=== PATIENT | male | born 1980 | race Caucasian/White ===

== ENCOUNTER → 2022-02-14 12:11 | Outpatient (BNVA) | payer OTHER, SELFPAY | PROVIDERS: PCP Internal Medicine; Visit Provider Internal Medicine | DX: T23.222A Burn of second degree of single left finger (nail) except thumb, initial encounter (principal); X08.8XXA Exposure to other specified smoke, fire and flames, initial encounter | CPT/HCPCS: 99202 ==

== ENCOUNTER → 2022-02-18 15:20 | Outpatient (BNVA) | payer OTHER, SELFPAY | PROVIDERS: PCP Internal Medicine; Visit Provider Internal Medicine | DX: T23.222A Burn of second degree of single left finger (nail) except thumb, initial encounter (principal); X08.8XXA Exposure to other specified smoke, fire and flames, initial encounter | CPT/HCPCS: 99213 ==

== ENCOUNTER → 2023-01-20 11:24 | Outpatient (BNVA) | payer OTHER, SELFPAY | PROVIDERS: PCP Internal Medicine; Visit Provider Internal Medicine | DX: S46.211A Strain of muscle, fascia and tendon of other parts of biceps, right arm, initial encounter (principal); X50.1XXA Overexertion from prolonged static or awkward postures, initial encounter | CPT/HCPCS: 99202 ==

== ENCOUNTER 2024-08-09 13:25 | Emergency (ER) | payer OTHER, BC, SELFPAY ==
--- NOTE | ~2024-08-09 | XR_ITS ---
EXAMINATION: XR FINGER, LEFT CLINICAL INFORMATION: fifth finger pain COMPARISON: None available. TECHNIQUE: Three views of the left fifth digit. FINDINGS: The bones and soft tissues are normal. No fracture. Alignment is anatomic. Joint spaces are maintained. XR/XR finger LT min 2V IMPRESSION: Normal finger radiographs. Electronically signed by: Ned Hyde MD 08/09/2024 01:56 PM [facility]
[2024-08-09 13:26] VITALS: BP 164/98; PULSE 73; RESP 20; TEMP 37; O2SAT 98; BMI 25.0
--- NOTE | 2024-08-09 13:28 | ED_ITS ---
HPI - Extremity Injury (Upper) General Chief Complaint: Extremity Injury, Upper Stated Complaint: Finger injury Time Seen by Provider: 08/09/24 13:49 Source: patient Mode of arrival: ambulatory Limitations: no limitations History of Present Illness ED Provider: Yuridia Roque PA-C HPI narrative: Patient is a 43 year old assigned male at with no reported medical history presenting to the emergency department today with a left pinky injury. 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 Patient states that he is unable to extend the distal most part of his left 5th finger. Patient denies any dizziness, lightheadedness, abdominal pain, nausea, vomiting, fever, chills, blurry vision, double vision, loss of vision, chest pain, difficulty breathing, shortness of breath, back pain, night sweats, pain with urination, increased urinary frequency, increased urinary urgency, blood in his urine or stool, syncope or a near syncopal episode, bowel incontinence, bladder incontinence, or any other complaints at this time. MD complaint: injury to: left and finger (5th) Relieving factors: none Exacerbating factors: none Context: direct blow Associated symptoms: denies other symptoms Related Data Allergies Allergy/AdvReac Type Severity Reaction Status Date / Time No Known Allergies Allergy Verified 08/09/24 13:29 Review of Systems Constitutional: Constitutional: Reports no additional constitutional complaints, Denies chills, Denies fever(s) and Denies night sweats Eyes: Eyes: Reports no additional eye complaints, Denies blurry vision, Denies change in vision, Denies diplopia, Denies eye discharge, Denies loss of vision and Denies eye pain ENT: Denies dizziness Cardiovascular: Cardiovascular: Reports no additional cardiovascular complaints, Denies chest pain, Denies lightheadedness, Denies Loss of Consciousness and Denies dyspnea Respiratory: Respiratory: Reports no additional respiratory complaints and Denies dyspnea Gastrointestinal: Gastrointestinal: Reports no additional gastrointestinal complaints, Denies abdominal pain, Denies melena, Denies hematochezia, Denies change in bowel habits and Denies change in stool character Genitourinary: Genitourinary: Reports no additional male genitourinary complaints, Denies hematuria, Denies oliguria, Denies difficulty urinating, Denies dysuria, Denies urinary frequency, Denies urinary hesitancy, Denies urinary incontinence and Denies urinary urgency Musculoskeletal: Musculoskeletal: Reports no additional musculoskeletal complaints, Denies numbness and Denies tingling Comments: left 5th digit injury - cannot extend Neurologic: Denies dizziness, Denies loss of vision, Denies numbness and Denies tingling Psychiatric: Psychiatric: Reports no additional psychiatric complaints Endocrine: Endocrine: Reports no additional endocrine complaints Hematologic/Lymphatic: Hematologic/Lymphatic: Reports no additional hematologic/lymphatic complaints Allergic/Immunologic: Allergic/Immunologic: Reports no additional allergic/ immunologic complaints PMFSH Past Medical History Attestation statement: The following information was validated with the patient. Source: old records reviewed and nursing notes reviewed Social History Social History Advance Directives: No Advance Directives Information Provided: No Physical Exam Vital Signs: Vital Signs: Last Vital Signs Temp 98.2 F 08/09/24 15:22 Pulse 61 08/09/24 15:22 Resp 16 08/09/24 15:22 BP 176/94 H 08/09/24 15:22 Pulse Ox 97 08/09/24 15:22 O2 Del Method Room Air 08/09/24 15:22 BMI result Body Mass Index 25.0 Const: General: cooperative, no acute distress, alert and awake Nutritional Appearance: well nourished Orientation/consciousness: patient oriented x3 Limitations: no limitations HEENT: Head: Yes normal to inspection and Yes atraumatic Ears: hearing grossly normal bilaterally and external ears normal General nose exam: Normal external nose present, no nasal discharge noted and no epistaxis Face and sinus: Yes normal facial exam, No abrasion and No laceration Mouth: Normal oral and palatal mucosa present, no drooling and no muffled voice Eyes: General: appearance normal, both eyes and all related structures Periorbital: periorbital findings normal Eyelids: Yes eyelids normal Conjunctivae: conjunctivae normal Pupils: Equal, round and reactive pupils present EOM: EOMs intact bilaterally Neck: Neck: Yes normal visual inspection, Yes full ROM and Yes no lymphadenopathy Chest: Chest palpation & inspection: normal inspection of the chest Resp: Effort & Inspection: normal respiratory effort and able to speak in complete sentences GI: Inspection: Yes normal to inspection Neuro: General: patient oriented x3 and moves all extremities Cranial nerves: Yes Equal, round and reactive pupils present Cognition (Neuro): normal cognition Extrem: Other: patient's left 5th finger is stuck in flexion at the DIP joint patient unable to actively extend the left 5th finger at the DIP joint I am unable to passive extend the left 5th finger at the DIP joint - it snaps back to flexed when extended General: Yes capillary refill normal Psych: Appearance: grossly normal Mental Status: mental status grossly normal Affect: normal affect Attitude: cooperative Thought process: Normal thought process present Thought content: Normal thought content present Insight: Good insight present (Psych) Course Course Course Narrative: This is an RME: Additional HPI, ROS, PE not included below will be deferred to primary provider. RME assessment and note performed by: Yuliya Booth PA-C This is a [id number], with no known medical problems, who presents to the ER with complaints of left fifth digit pain/dislocation. 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 Left finger appears to be dislocated. Plan: xray Medical Decision Making Medical Decision Making MDM Narrative: Patient is a 43 year old assigned male at with no reported medical history presenting to the emergency department today with a left 5th finger injury. Patient's physical exam was as noted in the physical exam portion of this note. Patient's left 5th finger x-ray showed no acute process. I spoke with the orthopedic team who recommended splinting the left 5th finger in extension and having him follow up on an outpatient basis. I explained my physical exam findings as well as all test results to the patient. I answered all questions asked by the patient. Patient's left 5th finger was placed in a splint without incident. Patient's PMS was intact prior to and after splint placement per the physical exam note. I stressed the importance of the patient taking his medication as directed (either prescribed or as the over the counter packaging recommends). I stressed the importance of the patient following up with his primary care provider, the orthopedic team, and work connection. I stressed the importance of the patient returning to the emergency department immediately if his symptoms were to worsen or if he were to develop any dizziness, shortness of breath, difficulty breathing, chest pain, blurry vision, loss of vision, nausea, vomiting, abdominal pain, fever, chills, back pain, or any other complaints. Patient verbalized agreement and understanding with this treatment plan and discharge. Differential Diagnosis Differential Diagnoses: The differential diagnosis associated with the presentation includes Left 5th finger mallet finger Admission/Observation Consideration of admission/observation: Escalation of care including admission/observation considered Patient would have been admitted to the hospital had his work up had any findings where hospital admission was appropriate and his clinical presentation warranted hospital admission. Consult Healthcare Provider Management of the patient was discussed with: Reliability Specialist (I spoke to the orthopedic team as noted in the MDM Rationale portion of this note) Independent Interpretation I performed an independent interpretation of an: Plain X-Ray Interpretation: My interpretation is in agreement with the radiologist's impression of this imaging study. EXAMINATION: XR FINGER, LEFT CLINICAL INFORMATION: fifth finger pain COMPARISON: None available. TECHNIQUE: Three views of the left fifth digit. FINDINGS: The bones and soft tissues are normal. No fracture. Alignment is anatomic. Joint spaces are maintained. XR/XR finger LT min 2V IMPRESSION: Normal finger radiographs. Electronically signed by: Ned Hyde MD 08/09/2024 01:56 PM [facility] Dictated By: Ned Hyde MD Signed By: Electronically signed by Ned Hyde MD 08/09/24 1356 Radiology Impression Discussion of test interpretation with radiology: I have reviewed the radiologist's reading. Procedures Orthopedic Splinting/Casting Injury #1: Side: left Upper Extremity Injury Location: finger (5th) Upper Extremity Immobilizer: finger (other) Discharge Plan Discharge Clinical Impression: Mallet deformity of left little finger Patient Disposition: Home, Self-Care Instructions: Jammed Finger (ED), Tendon Repair (DC) Additional Instructions: Please leave your splint in place. If your finger starts to have a change in color, feeling / sensation, or you feel the splint is too tight - immediately loosen the wrap. If you find yourself loosening it to the point where you're seeing the under portion of the splint, STOP and return to the ER immediately. Follow up with your primary care provider, work connection, and the orthopedic team. Return to the emergency department immediately if your symptoms worsen or if you develop any dizziness, shortness of breath, difficulty breathing, chest pain, blurry vision, loss of vision, nausea, vomiting, abdominal pain, fever, chills, back pain, or any other complaints. Referrals: [facility] [Provider Group] (Call to establish and follow up with an orthopedic provider.) [facility] [Provider Group] (Given this was a work place injury, call to establish and follow up with work connection.) Ian Still NP [Primary Care Provider] - Stand Alone Forms: Work/School Release Interventions: ED Discharge Assessment Last Done: 08/09/24 15:22 Discharge Date/Time: 08/09/24 15:23 Print Language: Stateless
[2024-08-09 15:10] VITALS: BP 176/94; PULSE 61; RESP 16; TEMP 36.8; O2SAT 97
[2024-08-09 15:22] VITALS: BP 176/94; PULSE 61; RESP 16; TEMP 36.8; O2SAT 97
== END 2024-08-09 15:23 | disposition home or self-care (01) ==
PROVIDERS: Emergency Provider Student in an Organized Health Care Education/Training Program; PCP Nurse Practitioner Family
DX: S67.22XA Crushing injury of left hand, initial encounter (principal); M20.012 Mallet finger of left finger(s); M79.645 Pain in left finger(s); W23.0XXA Caught, crushed, jammed, or pinched between moving objects, initial encounter; Y93.89 Activity, other specified; Y92.79 Other farm location as the place of occurrence of the external cause; Y99.0 Civilian activity done for income or pay
CPT/HCPCS: 29130; 73140; 99282; 99283; 99284

== ENCOUNTER → 2024-08-09 13:32 | Outpatient (BNV) | payer OTHER, BC, SELFPAY | PROVIDERS: Emergency Provider Student in an Organized Health Care Education/Training Program; PCP Nurse Practitioner Family; Visit Provider Radiology Diagnostic Radiology | DX: M79.645 Pain in left finger(s) (principal) | CPT/HCPCS: 73140 ==

== ENCOUNTER → 2024-08-11 08:39 | Outpatient (BNVA) | payer OTHER, SELFPAY | PROVIDERS: PCP Nurse Practitioner Family; Visit Provider Physician Assistant Medical | DX: Z09 Encounter for follow-up examination after completed treatment for conditions other than malignant neoplasm (principal); M20.012 Mallet finger of left finger(s) | CPT/HCPCS: 99203 ==

== ENCOUNTER 2024-08-12 07:38 | Outpatient (REF) | payer OTHER, SELFPAY ==
--- NOTE | ~2024-08-12 | XR_ITS ---
CLINICAL HISTORY: M79.642 - Pain in left hand Exam: AP, lateral, and oblique views of the left hand. Comparison: None. Findings: There is ulnar deviation of the 5th metacarpophalangeal joint. No dislocation is identified. Mild flexion of the DIP joint of the small finger. No bony avulsion fracture is seen. Bony alignment is otherwise anatomic. No fracture, periosteal reaction, or erosive disease. Impression: 1. 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 2. Nonspecific mild flexion of the D IP joint of the small finger. Correlation with the integrity of the extensor tendon is suggested. This document has been electronically signed by: Ian Franco MD on 08/15/2024 21:35:15
== END 2024-08-12 07:39 | disposition home or self-care (01) ==
LOC: HO.HOSX 07:38
DX: M79.642 Pain in left hand (principal); M20.012 Mallet finger of left finger(s)
CPT/HCPCS: 73130; 99202

== ENCOUNTER 2024-08-12 08:00 | Outpatient (AMB) | payer OTHER, SELFPAY ==
--- NOTE | 2024-08-12 08:06 | A.OFFVIS_ITS ---
Intake Visit Reasons: FRAMING AND HANGING-Mallet deformity of LT LF -DOI 08/11/24 Intake Note: Rangel is a 43 year old right hand dominant male who presents today as a new patient for a evaluation of his left pinky finger, DOI 08/09/24. 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 Patient states that he is unable to extend the distal most part of his left 5th finger. Today he mentions that he is feeling soreness, not having much pain. Allergies No Known Allergies Allergy (Verified 08/12/24 08:11) HPI HPI FRAMING AND HANGING-Mallet deformity of LT LF -DOI 08/11/24: Details: Patient is a 43-year-old male who presents for evaluation of mallet deformity of the distal phalanx of the left small finger, date of injury 08/11/2024. 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 Today, the patient reports that he is not in any pain at all, but he is still unable to actively straight in the DIP joint of the left small finger. Denies any numbness or tingling in the left upper extremity. No other acute complaints or concerns at this time. 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 Neuro: Normal sensation of the tips of all digits of the left hand at this time Vascular: Cap refill brisk Pain: No tenderness to palpation about the left small finger No pain with range of motion ROM: Patient was unable to actively extend at the DIP joint of the left small finger, and is unable to hold passive extension Patient is able to flex and extend all other digits of the left hand fully and without difficulty Skin: No lacerations or abrasions. General: No ecchymosis, erythema, or evidence of infection. Psych: Appears grossly normal Affect normal Attitude cooperative Results Reviewed Results Reviewed: X-rays obtained in the office today and independently reviewed by me, Daniel Abraham PA-C, demonstrate no fracture or acute bony abnormality of the left hand. Assessment & Plan Assessment & Plan (1) Mallet deformity of little finger: Code(s): M20.019 - Mallet finger of unspecified finger(s) Category: Medical Plan 1. Mallet finger of the left small finger Date of injury 08/11/2024 Patient is educated about this condition Patient is educated about the typical recovery course At this time, patient was provided with 2 splints to be worn over the DIP joint of the left small finger, in his educated that he should be wearing the splints at all times, including sleeping or bathing Patient is educated that the only time he should remove the splint is when 1 is wet and he needs to change it Patient is advised that he should hold the finger in extension while changing the splint Patient states understanding of this Patient will follow-up in 2-3 weeks for reassessment, sooner with any acute concerns Orders: Orders XR hand LT min 3V Today M79.642 - Pain in left hand Coding Level of Care Code New Pt Level 3 (09163) Diagnoses Mallet deformity of little finger M20.019
== END 2024-08-12 08:27 | disposition home or self-care (01) ==
PROVIDERS: PCP Nurse Practitioner Family
DX: M20.019 Mallet finger of unspecified finger(s) (principal)
CPT/HCPCS: 99203

== ENCOUNTER → 2024-08-12 08:04 | Outpatient (BNV) | payer OTHER, SELFPAY | PROVIDERS: Visit Provider Radiology Diagnostic Radiology | DX: S63.217A Subluxation of metacarpophalangeal joint of left little finger, initial encounter (principal) | CPT/HCPCS: 73130 ==

== ENCOUNTER 2024-08-26 08:18 | Outpatient (AMB) | payer OTHER, SELFPAY ==
[2024-08-26 08:30] VITALS: BMI 25.0
--- NOTE | 2024-08-26 08:30 | A.OFFVIS_ITS ---
Vital Signs 08/26/24 08:30 08/26/24 08:31 Height 6 ft 3 in 6 ft 3 in Weight 200 lb 200 lb BMI 25.0 25.0 Intake Visit Reasons: OV F/u -Mallet deformity of LT LF -DOI 08/11/24 Intake Note: Rangel is a 43 year old right hand dominant male who presents today for a follow up visit for mallet finger of the left small finger, DOI: 08/09/2024. At his last visit he was provided two splints to be worn over the DIP of the left small finger at all times including sleep and bathing. He reports that he has been compliant with splinting and believes that this is improving. Allergies No Known Allergies Allergy (Verified 08/12/24 08:11) HPI HPI OV F/u -Mallet deformity of LT LF -DOI 08/11/24: Details: Rangel is a 43 year old right hand dominant male who presents today for a follow up visit for mallet finger of the left small finger, DOI: 08/09/2024. At his last visit he was provided two splints to be worn over the DIP of the left small finger at all times including sleep and bathing. He reports that he has been compliant with splinting and believes that this is improving. 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 Neuro: Normal sensation of the tips of all digits of the left hand at this time Vascular: Cap refill brisk Pain: No tenderness to palpation about the left small finger No pain with range of motion ROM: DIP joint of the left small finger in splint held in extension Patient is able to flex and extend all other digits of the left hand fully and without difficulty Skin: No lacerations or abrasions. General: No ecchymosis, erythema, or evidence of infection. Psych: Appears grossly normal Affect normal Attitude cooperative Assessment & Plan Assessment & Plan (1) Mallet deformity of little finger: Code(s): M20.019 - Mallet finger of unspecified finger(s) Category: Medical Plan 1. Mallet finger of the left small finger Date of injury 08/11/2024 Patient is educated about this condition Patient is educated about the typical recovery course At this time, patient was provided with 2 splints to be worn over the DIP joint of the left small finger, in his educated that he should be wearing the splints at all times, including sleeping or bathing Patient is educated that the only time he should remove the splint is when 1 is wet and he needs to change it Patient is advised that he should hold the finger in extension while changing the splint Patient states understanding of this Patient will follow-up in 4 weeks for reassessment, sooner with any acute concerns Coding Level of Care Code Est Pt Level 3 (91261) Diagnoses Mallet deformity of little finger M20.019
[2024-08-26 08:31] VITALS: BMI 25.0
== END 2024-08-26 08:47 | disposition home or self-care (01) ==
PROVIDERS: PCP Nurse Practitioner Family
DX: M20.019 Mallet finger of unspecified finger(s) (principal)
CPT/HCPCS: 99213

== ENCOUNTER → 2024-08-26 08:18 | Outpatient (BNVA) | payer OTHER, SELFPAY | PROVIDERS: PCP Nurse Practitioner Family | DX: M20.012 Mallet finger of left finger(s) (principal) | CPT/HCPCS: 99212 ==

== ENCOUNTER 2024-09-19 08:11 | Outpatient (AMB) | payer OTHER, SELFPAY ==
[2024-09-19 08:14] VITALS: BMI 25.0
--- NOTE | 2024-09-19 08:14 | A.OFFVIS_ITS ---
Vital Signs 09/19/24 08:14 Height 6 ft 3 in Weight 200 lb BMI 25.0 Intake Visit Reasons: OV F/u -Mallet deformity of LT LF -DOI 08/11/24 Intake Note: Rangel is a 43 year old right hand dominant male who presents today for a follow up visit for mallet finger of the left small finger, DOI: 08/09/2024. Patient continues to wear splint at all times. Denies pain, numbness, tingling, or finger locking. Allergies No Known Allergies Allergy (Verified 09/19/24 08:15) HPI HPI OV F/u -Mallet deformity of LT LF -DOI 08/11/24: Details: Patient is a 43-year-old female who presents for follow-up evaluation of mallet deformity of the left small finger, date of injury 08/11/2024. Patient reports that he has continued to be wholly faithful with his bracing. Patient inquires if he will be able to return to work full duty today. No other acute complaints or concerns at this time. 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 Neuro: Normal sensation of the tips of all digits of the left hand at this time Vascular: Cap refill brisk Pain: No tenderness to palpation about the left small finger No pain with range of motion ROM: DIP joint of the left small finger in splint held in extension Patient is able to flex and extend all other digits of the left hand fully and without difficulty Skin: No lacerations or abrasions. General: No ecchymosis, erythema, or evidence of infection. Psych: Appears grossly normal Affect normal Attitude cooperative Assessment & Plan Assessment & Plan (1) Mallet deformity of little finger: Code(s): M20.019 - Mallet finger of unspecified finger(s) Category: Medical Plan 1. Mallet finger of the left small finger Date of injury 08/11/2024 Patient is educated about this condition Patient is educated about the typical recovery course At this time, patient was advised that he should continue with splinting for another week, as he is not yet a full 6 weeks out from injury Patient is educated that the only time he should remove the splint is when 1 is wet and he needs to change it Patient is advised that he should hold the finger in extension while changing the splint Patient states understanding of this Patient will follow-up in 1 week with me with Dr. Bajwa in the office for reassessment, sooner with any acute concerns Coding Level of Care Code Est Pt Level 3 (03030) Diagnoses Mallet deformity of little finger M20.019
== END 2024-09-19 08:44 | disposition home or self-care (01) ==
PROVIDERS: PCP Nurse Practitioner Family
DX: M20.012 Mallet finger of left finger(s) (principal)
CPT/HCPCS: 99213

== ENCOUNTER → 2024-09-19 08:11 | Outpatient (BNVA) | payer OTHER, SELFPAY | PROVIDERS: PCP Nurse Practitioner Family | DX: M20.012 Mallet finger of left finger(s) (principal) | CPT/HCPCS: 99212 ==

== ENCOUNTER 2024-09-28 08:20 | Outpatient (AMB) | payer OTHER, SELFPAY ==
--- NOTE | 2024-09-28 08:22 | MHC.OFFVIS ---
Vital Signs 09/28/24 08:27 Height 6 ft 3 in Weight 200 lb BMI 25.0 Intake Visit Reasons: OV-Mallet deformity of LT LF DOI 08/11/24- Intake Note: Rangel is a 43 year old right hand dominant male who presents today for follow up of mallet finger of the left small finger, DOI: 08/09/2024. At the last visit patient was educated he should only remove splint when wet and needing replacement. Patient was also advised he should hold the finger in extension while changing the splint. Today patient reports he is doing well, having no pain at the moment. Allergies No Known Allergies Allergy (Verified 09/28/24 08:22) HPI HPI OV-Mallet deformity of LT LF DOI 08/11/24-: Details: Patient is a 43-year-old female who presents for follow-up evaluation of mallet deformity of the left small finger, date of injury 08/11/2024. Patient reports that he has continued to be wholly faithful with his bracing. Patient inquires if he will be able to return to work full duty today. No other acute complaints or concerns at this time. 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 Neuro: Normal sensation of the tips of all digits of the left hand at this time Vascular: Cap refill brisk Pain: No tenderness to palpation about the left small finger No pain with range of motion ROM: DIP joint of the left small finger in splint held in extension Patient was able to actively hold the DIP joint of the left small finger in extension once splint is removed Patient is able to flex and extend all other digits of the left hand fully and without difficulty Skin: No lacerations or abrasions. General: No ecchymosis, erythema, or evidence of infection. Psych: Appears grossly normal Affect normal Attitude cooperative Assessment & Plan Assessment & Plan (1) Mallet deformity of little finger: Code(s): M20.019 - Mallet finger of unspecified finger(s) Category: Medical Plan 1. 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
[2024-09-28 08:27] VITALS: BMI 25.0
== END 2024-09-28 08:45 | disposition home or self-care (01) ==
PROVIDERS: PCP Nurse Practitioner Family
DX: M20.019 Mallet finger of unspecified finger(s) (principal); M20.012 Mallet finger of left finger(s)
CPT/HCPCS: 99213

== ENCOUNTER → 2024-09-28 08:20 | Outpatient (BNVA) | payer OTHER, SELFPAY | PROVIDERS: PCP Nurse Practitioner Family | DX: M20.012 Mallet finger of left finger(s) (principal) | CPT/HCPCS: 99212 ==

== ENCOUNTER 2024-11-09 08:14 | Outpatient (AMB) | payer OTHER, SELFPAY ==
[2024-11-09 08:17] VITALS: BMI 25.0
--- NOTE | 2024-11-09 08:17 | MHC.OFFVIS ---
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 At his last visit he was transitioned from splinting at all times to only splinting for about 8 hours a day, he was allowed to return to work [employer]. Patient reports that he has been compliant with 8 hour a day splinting, he is wearing the splint at night and removing during the day unless he is at work. He notices that the finger does start to become a bit deformed while out of this splint, and he also has bruising on the dorsal aspect of the DIP. Allergies No Known Allergies Allergy (Verified 09/28/24 08:22) HPI HPI OV-Mallet deformity of LT LF DOI 08/11/24-: Details: Rangel is a 43 year old right hand dominant male who presents today for follow up of mallet finger of the left small finger, DOI: 08/09/2024. At his last visit he was transitioned from splinting at all times to only splinting for about 8 hours a day, he was allowed to return to work [employer]. Patient reports that he has been compliant with 8 hour a day splinting, he is wearing the splint at night and removing during the day unless he is at work. He notices that the finger does start to become a bit deformed while out of this splint, and he also has bruising on the dorsal aspect of the DIP. 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 Neuro: Normal sensation of the tips of all digits of the left hand at this time Vascular: Cap refill brisk Pain: No tenderness to palpation about the left small finger No pain with range of motion ROM: DIP joint of the left small finger in splint held in extension Patient was able to actively hold the DIP joint of the left small finger in extension Patient is able to flex and extend all other digits of the left hand fully and without difficulty Skin: No lacerations or abrasions. General: There is some ecchymosis noted on the dorsal aspect of the DIP joint of the left small finger along with lily suggestive of splint being too tight No erythema, or evidence of infection. Psych: Appears grossly normal Affect normal Attitude cooperative Assessment & Plan Assessment & Plan (1) Mallet deformity of little finger: Code(s): M20.019 - Mallet finger of unspecified finger(s) Category: Medical Plan 1. Mallet finger of left small finger Date of injury 08/11/2024 Patient appears to be recovering well from his injury Patient is educated about the typical recovery course At this time, patient was informed that he can discontinue use of the splint, but if he would feel more comfortable using it at work for the next week or 2, he can feel free to do so Patient was also educated he can gradually return to normal lifting, increasing to 5-10 lb over the next 2 weeks, 15 lb over the 2 following weeks, and then normal lifting Patient expresses understanding of this and is amenable to this plan Patient will follow-up in 4-6 weeks for [id number] check, sooner with any acute concerns Coding Level of Care Code Est Pt Level 3 (89551) Diagnoses Mallet deformity of little finger M20.019
== END 2024-11-09 08:32 | disposition home or self-care (01) ==
LOC: HO.HOS 08:14
PROVIDERS: PCP Nurse Practitioner Family
DX: M20.019 Mallet finger of unspecified finger(s) (principal); Z04.2 Encounter for examination and observation following work accident
CPT/HCPCS: 99213

== ENCOUNTER → 2024-11-09 08:14 | Outpatient (BNVA) | payer OTHER, SELFPAY | PROVIDERS: PCP Nurse Practitioner Family | DX: M20.012 Mallet finger of left finger(s) (principal) | CPT/HCPCS: 99212 ==

== ENCOUNTER 2024-12-12 09:35 | Outpatient (AMB) | payer OTHER, SELFPAY ==
[2024-12-12 09:40] VITALS: BMI 25.0
--- NOTE | 2024-12-12 09:40 | MHC.OFFVIS ---
Vital Signs 12/12/24 09:40 Height 6 ft 3 in Weight 200 lb BMI 25.0 Intake Visit Reasons: OV-Mallet deformity of LT LF DOI 08/11/24 Intake Note: Rangel is a 43 year old right hand dominant male who presents today for a follow up visit for mallet finger of the left small finger, DOI: 08/09/2024. States he is doing well no pain or concerns. Allergies No Known Allergies Allergy (Verified 12/12/24 09:47) HPI HPI OV-Mallet deformity of LT LF DOI 08/11/24: Details: Rangel is a 43 year old right hand dominant male who presents today for a follow up visit for mallet finger of the left small finger, DOI: 08/09/2024. States he is doing well no pain or concerns. Patient reports that it does still have a slight bend in the left small finger, but that full function has returned and he has no concerns. 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 Neuro: Normal sensation of the tips of all digits of the left hand at this time Vascular: Cap refill brisk Pain: No tenderness to palpation about the left small finger No pain with range of motion ROM: DIP joint of the left small finger in splint held in extension Patient was able to actively hold the DIP joint of the left small finger in extension Patient is able to flex and extend all other digits of the left hand fully and without difficulty Skin: No lacerations or abrasions. General: No erythema, or evidence of infection. Psych: Appears grossly normal Affect normal Attitude cooperative Assessment & Plan Assessment & Plan (1) Mallet deformity of little finger: Code(s): M20.019 - Mallet finger of unspecified finger(s) Category: Medical Plan 1. Mallet finger of left small finger Date of injury 08/11/2024 Patient appears to be recovering well from his injury Patient is educated about the typical recovery course Patient is educated that no splinting is necessary, and he can return to full normal lifting Patient expresses understanding of this and is amenable to this plan Patient will follow-up as needed with any acute concerns Coding Level of Care Code Est Pt Level 3 (33335) Diagnoses Mallet deformity of little finger M20.019
--- OUTSIDE RECORDS SUMMARY | 2024-12-12 10:40 | XMS_ITS | Data Portability ---
Author Organization [facility], [facility] Address [address] [place] [address] Care Team Providers Care Ophthalmic Technician Apprentice Name Role Phone KIM HERNANDEZ Primary Care Provider Assessment Encounter Date Assessment Date Assessment LastModified by Organization Details LastModified Time 02/05/2024 02/05/2024 I am seeing the patient today under the supervision of Dr. Akbar who was available but who did not see the patient. HPI: Patient is here today for reevaluation of left hip pain. Has been evaluated by my colleague and diagnosed with osteoarthritis of the hip. Here today for intra-articular hip injection. Has wanted to hold off on total hip arthroplasty at this point and move forward with continued conservative management. His last injection was approximately 5 months ago No new injury or symptom changes. Review of systems: As noted patient intake. Physical exam:The patient is well appearing and in no apparent distress. Alert and oriented x3. Gait is antalgic on the left. Examination of the hip reveals no effusion, erythema, or warmth. No point tenderness over the greater trochanter. Forward flexion to 90. External rotation to 60 internal rotation to 0. + impingement, - straight leg raise. Calf soft and nontender. 5/5 strength with hip flexion/extension. Assessment: Osteoarthritis of the left hip Plan: I explained the nature of the diagnosis with the patient and its treatment options both conservative and surgical. Conservative measures were discussed at length including oral antiinflammatories, physical therapy, bracing and injection therapies. Please see the procedure note for further documentation about the injection performed today. Follow-up as scheduled for re-evaluation, sooner if any difficulty. The patient understands and agrees with the plan. They know to call if they have any further questions or concerns regarding their symptoms, or to follow up sooner if needed. [email or web address] Not available 02/05/2024 08:50:51 04/25/2024 04/25/2024 I am seeing the patient today under the supervision of Dr. Akbar who was available but who did not see the patient. HPI: Patient is here today for reevaluation of left hip pain. Has been evaluated by myself and diagnosed with osteoarthritis of the hip. Here today for intra-articular hip injection. No new injury or symptom changes. Review of systems: As noted patient intake. Physical exam:The patient is well appearing and in no apparent distress. Alert and oriented x3. Gait is antalgic on the left. Examination of the hip reveals no effusion, erythema, or warmth. No point tenderness over the greater trochanter. Forward flexion to 90. External rotation to 60 internal rotation to 0. + impingement, - straight leg raise. Calf soft and nontender. 5/5 strength with hip flexion/extension. Assessment: Osteoarthritis of the left hip Plan: I explained the nature of the diagnosis with the patient and its treatment options both conservative and surgical. Conservative measures were discussed at length including oral antiinflammatories, physical therapy, bracing and injection therapies. Please see the procedure note for further documentation about the injection performed today. Follow-up in 3 months for re-evaluation, sooner if any difficulty. The patient understands and agrees with the plan. They know to call if they have any further questions or concerns regarding their symptoms, or to follow up sooner if needed. [email or web address] Not available 04/25/2024 19:35:06 08/26/2024 08/26/2024 I am seeing the patient today under the supervision of Dr. Alva who was available but who did not see the patient. HPI: Patient is here today for reevaluation of left hip pain. Has been evaluated by myself and diagnosed with osteoarthritis of the hip. Here today for intra-articular hip injection. No new injury or symptom changes. Review of systems: As noted patient intake. Physical exam:The patient is well appearing and in no apparent distress. Alert and oriented x3. Gait is antalgic on the left. Examination of the hip reveals no effusion, erythema, or warmth. No point tenderness over the greater trochanter. Forward flexion to 90. External rotation to 60 internal rotation to 0. + impingement, - straight leg raise. Calf soft and nontender. 5/5 strength with hip flexion/extension. Assessment: Osteoarthritis of the left hip Plan: I explained the nature of the diagnosis with the patient and its treatment options both conservative and surgical. Conservative measures were discussed at length including oral antiinflammatories, physical therapy, bracing and injection therapies. Please see the procedure note for further documentation about the injection performed today. Follow-up in 3 months for re-evaluation, sooner if any difficulty. The patient understands and agrees with the plan. They know to call if they have any further questions or concerns regarding their symptoms, or to follow up sooner if needed. [email or web address] Not available 08/26/2024 07:55:45 Plan of Treatment Reminders Order Date Submit Date Provider Last Modified By Organization Details Last Modified Time Details Appointments RECHECK 15 2024 09:45A Galo Michael PA-C Not available Not available Not available Lab None recorded. Referral None recorded. Procedures None recorded. Surgeries None recorded. Imaging None recorded. Medication Orders diclofena c sodium 75 mg tablet,de layed release [address] [place] [address] [facility], [address] [place] [address], [place], [address], 08/26/2024 11:14:57 Patient TargetsNo targets recorded. Patient InstructionsNo instructions recorded. Reason for Referral None Reported. Results Created Date Observation Date Name Description Value Unit Range Abnormal Flag Note LastModifiedBy Organization Detail LastModifiedTime 04/16/2010/08/2018 imagi ng/di agnos tic resul t No observ ation record ed. [email or web address] Not Available 03/19 03:56:43 04/16/20 24 02/13/2023 imagi ng/di agnos tic resul t No observ ation record ed. [email or web address] Not Available 03/19 03:57:21 04/16/20 24 06/25/2023 imagi ng/di agnos tic resul t No observ ation record ed. [email or web address] Not Available 03/19 03:57:44 Result Notes None recorded. Procedures Surgical History Date Name Laterality Status Provider Name and Address Organization Details Recorded Time 08/26/2024 [facility] Rangel Michael PA-C [address], [place], [address], [facility] 08/26/2024 07:54:52 04/25/2024 [facility] Rangel Michael PA-C [address], [place], [address], [facility] 04/25/2024 09:41:10 02/05/2024 [facility] completed Rangel Michael PA-C [address], [place], [address], [facility] 02/05/2024 08:51:01 Imaging Results Imaging Date Name Status LastModified by Organiz ation Details LastModified Time 10/08/2018 imaging/diag nostic result completed Information not available 04/16/2024 03:56:43 02/13/2023 imaging/diag nostic result completed Information not available 04/16/2024 03:57:21 06/25/2023 imaging/diag nostic result completed Information not available 04/16/2024 03:57:44 Procedure Notes None recorded. Medical Equipment None Reported. Allergies No known drug allergies Medications Name Sig Start Date Stop Date Status Note LastModified by Organization Details LastModified Time ibuprofen 800 mg tablet TAKE 1 TABLET BY MOUTH EVERY 6 HOURS active Not Available Not Available No t Available aspirin 81 mg tablet,[place] yed release TAKE 1 TABLET BY MOUTH ONCE DAILY FOR 14 DAYS POST SURGERY active Not Available Not Available No t Available sildenafil 100 mg tablet TAKE ONE TABLET BY MOUTH APPROXIMA TELY ONE HOUR BEFORE SEXUAL ACTIVITY. DO NOT USE MORE THAN ONE DOSE DAILY active Not Available Not Available No t Available diclofenac sodium 75 mg tablet,[place] yed release TAKE 1 TABLET BY MOUTH TWICE DAILY active Not Available Not Available No t Available ondansetron 4 mg disintegrat ing tablet DISSOLVE 1 TABLET IN MOUTH EVERY 8 HOURS NEEDED FOR NAUSEA AND VOMITING active Not Available Not Available No t Available peg 3350-electr olytes 236 gram-22.74 gram-6.74 gram-5.86 gram solution TAKE 8 OUNCES BY MOUTH DIRECTED DRINK A GLASS EVERY 10 TO 15 MINUTES active Not Available Not Available No t Available oxycodone HCl-oxycodo ne-ASA [address] WHILE TAKING THIS MEDICATIO N 03/03 completed Statu s: 'Disc ontin ued'; Not Available Not Available Not Available Vitals Date Recorded Body height Provider Name an d Address Organization Details Last Updated DateTime 02/05/2024 193.04 cm LORI MATILDA [facility] 02/05/2024 12:47:48 Date Recorded Body height Body mass index (BMI) Body weight Provider Name and Address Organization Details Last Updated DateTime 04/25/2024 193.04 cm 24 kg/m2 86381.7 g Rangel Michael PA-C [address], [address], [facility] 04/25/2024 14:34:02 Date Recorded Body height Body mass index (BMI) Body weight Provider Name and Address Organization Details Last Updated DateTime 08/26/2024 193.04 cm 24 kg/m2 91470.7 g KAYLIA L'HEUREUX [facility] 08/26/2024 10:42:08 Social History None recorded. Functional Status None recorded. Mental Status None recorded. Family History Nothing Reported. Medical History No medical history recorded. Past Encounters Encounter ID Performer Location Encounter Start Date Encounter Closed Date Diagnosis/Indication Diagnosis SNOMED-CT Code Diagnosis ICD10 Code Diagnosis Note [id number] ADELAIDA Curtis [address] [place] [address] 02/05/2024 12:41:47 03/11/2024 14:36:46 Osteoarthritis of left hip joint 6615126164 34404 M16.12 [id number] ADELAIDA Curtis [address] [place] [address] 04/25/2024 14:29:39 05/17/2024 14:30:00 Osteoarthritis of left hip joint 0009408764 53085 M16.12 [id number] Rangel Michael PA-C [facility] [address] [place], [place] [address] 08/26/2024 09:49:34 09/07/2024 08:52:42 Osteoarthritis of left hip joint [id number] 33394 M16.12 Health Concerns Section Related Observation LastModified by Organization Detai ls LastModified Time None Recorded Concern Status LastModified by Organization Details LastModified Time None Recorded Advance Directives Directive None Recorded Payers Encounter Date Sequence Insurance Name Policy Number Policy Josue Covered Member ID Josue Member ID Guarantor Name 02/05/[address] [place] [address] [id number] Rangel Maurer [id number] Rangel Maurer 04/25/2024 1 [facility] [id number] Rangel Maurer [id number] Rangel Maurer 08/26/2024 [address] [facility] [id number] Rangel Maurer [id number] Rangel Maurer
== END 2024-12-12 09:57 | disposition home or self-care (01) ==
LOC: HO.HOS 09:35
PROVIDERS: PCP Nurse Practitioner Family
DX: M20.012 Mallet finger of left finger(s) (principal); Z04.2 Encounter for examination and observation following work accident
CPT/HCPCS: 99213

== ENCOUNTER → 2024-12-12 09:35 | Outpatient (BNVA) | payer OTHER, SELFPAY | PROVIDERS: PCP Nurse Practitioner Family | DX: M20.012 Mallet finger of left finger(s) (principal) | CPT/HCPCS: 99212 ==